=== PATIENT | female | born 1990 | race Caucasian/White ===

== ENCOUNTER 2020-09-08 17:06 | Emergency (ER) | payer SELFPAY ==
[2020-09-08 17:11] VITALS: BP 122/76; PULSE 119; RESP 18; O2SAT 100; BMI 21.7
[2020-09-08 17:17] VITALS: BP 116/70; PULSE 80; RESP 27; O2SAT 76
--- NOTE | 2020-09-08 18:41 | XRR_ITS ---
PROCEDURE INFORMATION: Exam: XR Chest Exam date and time: 09/08/2020 6:47 PM Age: 30 years old Clinical indication: Cough TECHNIQUE: Imaging protocol: XR of the chest. Views: 1 view. COMPARISON: No relevant prior studies available. FINDINGS: Lungs: Unremarkable. No consolidation. Small densely calcified granuloma in the left upper lobe. Pleural spaces: Unremarkable. No pleural effusion. No pneumothorax. Heart/Mediastinum: Unremarkable. No cardiomegaly. Calcified granulomas left hilum. Bones/joints: Unremarkable. Bones/joints: Unremarkable. XR/XR chest 1V portable [id number] IMPRESSION: 1. No acute findings. 2. Healed granulomatous disease.
--- NOTE | 2020-09-08 18:42 | W.ED.GENADLT ---
HPI - General Adult General: Chief complaint: General Medical Stated complaint: POSS CHEMICAL BURN/ INHALATION Time Seen by Provider: 09/08/20 18:22 Source: patient, family and RN notes reviewed Limitations: no limitations History of Present Illness: HPI narrative: This patient has a 30-year-old female who presents to the emergency department complaining of atypical chest pain/pleuritic chest pain. Patient states she has a chemical burn from treating her dog for skunk spray. States that the chemical that she put on the dog is not irritating her lungs. Patient does have. History of anxiety and does appear to be overly anxious. Breath sounds are equal bilaterally. Will do medical evaluation treat as needed Onset (ago): day(s) (1) Pain Consistency: intermittent Associated symptoms: Reports chest pain and dyspnea; Deny headache(s), nausea, rash, palpitations or vomiting Review of Systems General: Reports: 10 or more systems reviewed and unremarkable except in HPI and below Const: Denies: fever(s), chills, body aches or fatigue Eyes: Denies: change in vision or blurry vision ENMT: Denies: throat pain, hoarseness or mouth pain Card: Reports: chest pain; Denies: palpitations Resp: Reports: dyspnea GI: Denies: nausea or vomiting : Denies: flank pain, difficulty voiding, dysuria, urinary frequency, urinary urgency or urinary hesitancy Musc: Denies: neck pain, back pain, extremity pain, extremity swelling, joint pain, joint swelling, joint redness, joint warmth or limited range of motion Skin/Breast: Denies: rash Neuro: Denies: headache(s) Psych: Reports: anxiety; Denies: depression Physical Exam Const: COMMON NORMALS: no acute distress, average body habitus, patient oriented x3, no limitations, healthy appearing, alert and well nourished HENMT: COMMON NORMALS: normocephalic, atraumatic, hearing grossly normal bilaterally, external ears normal, EAC's normal, TM's normal bilaterally, Normal external nose present, Normal nasal mucous membranes and turbinates present, moist oral mucous membranes, oropharynx normal, dentition normal and gingiva normal HEAD & SCALP: normocephalic and atraumatic NOSE: Normal external nose present and Normal nasal mucous membranes and turbinates present EXTERNAL EAR: Yes external ears normal EXTERNAL AUDITORY CANAL: EAC's normal TYMPANIC MEMBRANE: TM's normal bilaterally Neck/C-Spine: COMMON NORMALS: full ROM, no lymphadenopathy, supple, no meningeal signs, no JVD, Thyroid normal and No carotid bruits THYROID: Thyroid normal Chest: COMMONS NORMALS: normal inspection of the chest, normal palpation of entire chest wall, normal inspection of the breasts and normal palpation of the breasts Breast/axilla inspection: Yes normal inspection of the breasts BREAST/AXILLA PALPATION: Yes normal palpation of the breasts Resp: COMMON NORMALS: normal respiratory effort, No retractions, No use of accessory muscles, clear to auscultation bilaterally and percussion normal AUSCULTATION: clear to auscultation bilaterally PERCUSSION: percussion normal Cardio: COMMON NORMALS: no JVD, regular rate, regular rhythm, S1 normal heart sound present, S2 normal heart sound present, No gallops present (Cardio), No clicks present (Cardio), No murmurs present (Cardio), No rub (Cardio) and Peripheral pulses 2+ throughout RATE: regular rate RHYTHM: regular rhythm HEART SOUNDS: S1 normal heart sound present and S2 normal heart sound present PERIPHERAL PULSES: Peripheral pulses 2+ throughout GI: COMMON NORMALS: Normal to inspection, nondistended, normoactive bowel sounds present, Soft to palpation, non-tender, No hepatosplenomegaly present, no masses and no bruits PALPATION: Yes Soft to palpation and Yes No hepatosplenomegaly present : COMMON NORMALS: Yes no CVA tenderness, Yes normal external appearance, Yes normal appearance of the vagina, Yes normal appearance of the cervix, Yes normal bimanual exam, Yes No adnexal tenderness and Yes no masses BLADDER/KIDNEY EXAM: Yes no CVA tenderness BIMANUAL EXAM - VAGINA & UTERUS: Yes normal bimanual exam Back/Pelvis: COMMON NORMALS: no CVA tenderness, thoracic and lumbar spine normal to inspection, no thoracic nor lumbar tenderness, thoraco-lumbar ROM normal and straight leg raise negative bilaterally Extremity: COMMON NORMALS: normal to inspection, full ROM, capillary refill normal, no joint enlargement, no clubbing, cyanosis or edema, no calf tenderness and no pedal edema Neuro: COMMON NORMALS: patient oriented x3 SENSORIUM/ORIENTATION: Yes alert MENINGEAL SIGNS: Yes no meningeal signs Psych: COMMON NORMALS: cooperative MOOD & AFFECT: Yes anxious Course Reevaluation(s): Reevaluation #1: Negative evaluation for any acute findings. Negative chest x-ray. Anxiety is improved. Patient be discharged home. Encourage p.o. fluids. Patient will be given a prescription for albuterol puff inhaler. Tessalon Perles. Follow-up with PCP in 2 to 3 days Time: 19:27 Vital Signs: Vital signs: Vital Signs Pulse Rate 110 H 09/08/20 19:25 Respiratory Rate 22 H 09/08/20 19:23 Blood Pressure 116/70 09/08/20 17:17 Pulse Oximetry 99 09/08/20 19:23 [facility] - General Adult Imaging Data^: CXR: Radiologist's impression: IMPRESSION: 1. No acute findings. 2. Healed granulomatous disease. Discharge Plan Discharge Patient Disposition: Home Clinical Impression: Dyspnea, Acute anxiety, Chemical pneumonitis Condition: Stable Prescriptions: New albuterol sulfate [ProAir HFA] 90 mcg/actuation HFA aerosol inhaler 2 inh inhalation Q6H PRN (Reason: shortness of breath or wheezing) Qty: 8.5 RF: 0 benzonatate [Tessalon Perles] 100 mg capsule 100 mg PO TID Qty: 20 RF: 0 No Action clonazepam 1 mg tablet 1 mg PO QPM PRN (Reason: Anxiety) RF: 0 buspirone 10 mg tablet 10 mg PO BID RF: 0 bupropion HCl 150 mg tablet extended release 24 hr 150 mg PO BID RF: 0 Discharge Orders: Discharge ED (Routine); Ordered 09/08/20 Ordered By: Kenny Smith Discharge Diet: Advance as tolerated Discharge Activity: Resume usual activity Patient Instructions: Opioid Safety Activity Restrictions/Additional Instructions: Encourage p.o. fluids. Use medications as instructed. When using chemical substances wear mask. 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
[2020-09-08] MEDS: benzonatate 100 mg Capsule PO (18:52)
[2020-09-08] MEDS: albuterol 8 gm MDI 2 PUFF INHALATION (19:22)
[2020-09-08 19:23] VITALS: PULSE 112; RESP 22; O2SAT 99
[2020-09-08 19:25] VITALS: PULSE 110
[2020-09-08 19:43] VITALS: PULSE 110; RESP 15; O2SAT 100
== END 2020-09-08 19:45 | disposition home or self-care (01) ==
PROVIDERS: Emergency Provider Emergency Medicine
DX: R06.00 Dyspnea, unspecified (principal); F41.9 Anxiety disorder, unspecified; J68.0 Bronchitis and pneumonitis due to chemicals, gases, fumes and vapors
CPT/HCPCS: 71045; 94640; 99283; J3535

== ENCOUNTER → 2022-11-12 10:00 | Outpatient (BNVA) | payer BC, MEDICAID, SELFPAY | PROVIDERS: Visit Provider Obstetrics & Gynecology | DX: Z01.419 Encounter for gynecological examination (general) (routine) without abnormal findings (principal) | CPT/HCPCS: 87624 ==

== ENCOUNTER → 2023-05-03 10:48 | Outpatient (BNVA) | payer BC, MEDICAID, SELFPAY | PROVIDERS: Visit Provider Nurse Practitioner Women's Health | DX: Z30.9 Encounter for contraceptive management, unspecified (principal); Z30.011 Encounter for initial prescription of contraceptive pills | CPT/HCPCS: 81025 ==

== ENCOUNTER → 2024-02-09 13:41 | Outpatient (BNVA) | payer BC, MEDICAID, SELFPAY | PROVIDERS: Visit Provider Nurse Practitioner Women's Health | DX: Z30.9 Encounter for contraceptive management, unspecified (principal) | CPT/HCPCS: 81025 ==

== ENCOUNTER → 2024-02-28 09:24 | Outpatient (BNVA) | payer BC, MEDICAID, SELFPAY | PROVIDERS: Visit Provider Nurse Practitioner Women's Health | DX: Z30.9 Encounter for contraceptive management, unspecified (principal) | CPT/HCPCS: 81025 ==

== ENCOUNTER → 2024-11-06 10:46 | Outpatient (BNVA) | payer BC, MEDICAID, SELFPAY | PROVIDERS: Visit Provider Physician Assistant | DX: M25.561 Pain in right knee (principal); S89.81XA Other specified injuries of right lower leg, initial encounter; W01.0XXA Fall on same level from slipping, tripping and stumbling without subsequent striking against object, initial encounter | CPT/HCPCS: 73560; 73565 ==

== ENCOUNTER → 2024-11-20 16:13 | Outpatient (BNVA) | payer BC, MEDICAID, SELFPAY | PROVIDERS: Visit Provider Nurse Practitioner Women's Health | DX: Z00.00 Encounter for general adult medical examination without abnormal findings (principal) | CPT/HCPCS: 86592; 86803; 87340; 87491; 87591; 87624; 87661; 87806 ==